=== PATIENT | female | born 1975 | race Hispanic/Latino ===

== ENCOUNTER 2018-12-16 18:40 | Emergency (ER) | payer SELFPAY ==
[2018-12-16] MEDS ORDERED: Sterile Water 10 ML ONE (19:59)
[2018-12-16] MEDS ORDERED: methylPREDNISolone Acetate 40 mg/ml Vial IM SCH (20:00)
== END 2018-12-16 21:00 | disposition home or self-care (01) ==
LOC: ERS 18:40
DX: J30.9 Allergic rhinitis, unspecified (principal)
CPT/HCPCS: 87081; 87430; 99283; J1030